=== PATIENT | female | born 1970 | race Caucasian/White ===

== ENCOUNTER 2017-12-05 09:32 | Outpatient (CLI) | payer BC ==
[2017-12-05 10:21] LABS: Mean Corpuscular HGB CONC 33.5 g/dL (32.0-36.0); Mean Corpuscular Hemoglobin 30.6 pg (27.0-31.0); Mean Corpuscular Volume 91.4 fl (81.0-99.0); Mean Platelet Volume 6.6 fL (7.4-10.4); Platelet Count 253 thou/uL (130-400); RBC Distribution Width 11.6 % (11.5-14.5); Red Blood Cell (RBC) Count 4.23 mill/uL (4.20-5.40); White Blood Cell (WBC) Count 5.2 thou/uL (4.8-10.8)
[2017-12-05 10:37] LABS: Anion Gap 11 mmol/L (10-20); BUN (Urea Nitrogen) 13 mg/dL (7.0-18.7); Calc. Creatinine Clearance 0 mL/min (70-130); Calcium 9.8 mg/dL (7.8-10.44); Carbon Dioxide 27 mmol/L (22-29); Chloride 105 mmol/L (98-107); Estimated GFR-MDRD 80; Glucose 95 mg/dL (70-105); Potassium 4.4 mmol/L (3.5-5.1); Sodium 139 mmol/L (136-145)
== END 2017-12-05 09:33 | disposition home or self-care (01) ==
LOC: LABBT 09:32
PROVIDERS: ATTEND Urology
DX: Z01.812 Encounter for preprocedural laboratory examination (principal); D49.4 Neoplasm of unspecified behavior of bladder
CPT/HCPCS: 80048; 85027

== ENCOUNTER 2017-12-08 07:36 | Day surgery (SDC) | payer BC ==
[2017-12-05 09:41] VITALS: BMI 24.1
[2017-12-08] MEDS ORDERED: Fentanyl 250 MCG/5 ML VIAL ONE ×2 (09:20→10:51)
[2017-12-08] MEDS ORDERED: CEFAZOLIN 1 GM, Syringe 2.5 ML in Sterile Water 7.5 ML SLOW IVP SCH (09:30)
[2017-12-08] MEDS ORDERED: traMADol HCl 50 MG TAB PO PRN (10:42)
[2017-12-08] MEDS ORDERED: Iothalamate Meglumine 60% 50 ML VIAL FS ONE (10:54)
--- NOTE | 2017-12-08 11:05 | OP ---
DATE OF PROCEDURE: 12/08/2017 PREOPERATIVE DIAGNOSES: Microhematuria, bladder lesions. POSTOPERATIVE DIAGNOSES: Microhematuria, bladder lesions. PROCEDURES PERFORMED: Cystoscopy, bilateral retrogrades, biopsy right ureteral orifice, biopsy poste rior wall. SPECIMENS SENT: Biopsies of these sites, the two in the right wall and the posterior wall went toget her. The ureteral orifice went by itself. ESTIMATED BLOOD LOSS: 25 mL DRAINS PLACED: A 16 Martiniquais 10 mL Coleman. Retrograde studies appeared normal. FINDINGS: There were papillary changes at the right ureteral orifice. The left side was normal. Po sterior wall, couple of kind of bland red areas. It did not appear very suspicious. It was more suzanne picious in the office than it was looking at today, but these areas were biopsied. OPERATIVE TECHNIQUE: Obtained written verbal consent from the patient after receiving IV antibiotics . She was taken to the operating suite. She was placed in the supine position on the treatment tabl e. PlexiPulses were placed on her lower extremities and turned on. She was given a general anesthet ic, oral obturator intubation. She was placed in the dorsal lithotomy position, sterilely prepped an d draped. Cystoscopy was performed with a 22-Martiniquais sheath. This was well lubricated, passed under direct vision through the female urethra and into the bladder with aid of a video camera monitor and a 30-degree lens. The bladder was filled and emptied a number of times examined with both a 30 and t he 70 degree lens. At this point, cone tip catheter was flushed with contrast, placed in the right u reteral orifice. A casing inspector KUB had been taken already with the fluoroscopy unit. We injected contrast in a retrograde manner up the right ureter, about 10 mL total. Left side was done in a similar barker er. Drainage films were also obtained. There was no extravasation, no evidence of filling defect. We then fed a 0.038 guidewire up the right ureteral orifice and used this as a way to identify the ur eteral lumen. We then biopsied the abnormal tissues on the medial anterior portion of this, not incl uding the ureteral orifice itself. We then biopsied two areas of the reddish area in the posterior w all and we used the Bugbee to cauterize these. At this point, the wire was removed. We watched for efflux of slightly bloody urine from the right ureteral orifice without difficulty over the next 5 mi nutes, so the stent was not placed. At this point, the patient was awakened, extubated, and taken by stretcher to the recovery room.
--- NOTE | 2017-12-08 11:15 | RAD ---
IVP RETROGRADE: Date: 12/08/17 HISTORY: Bladder tumor. COMPARISON: None. FINDINGS: No significant hydroureteronephrosis of left renal collecting system. Mild right-sided hydronephrosis . On the last image, there is a wire in the right ureter. IMPRESSION: 1. Mild right-sided hydronephrosis. 2. Wire seen over the right ureter on the last image. POS: GIORGIO
[2017-12-08] MEDS ORDERED: B & O ONE (11:22)
[2017-12-08] MEDS ORDERED: B & O PR SCH (12:15)
[2017-12-08] MEDS ORDERED: traMADol HCl 50 MG TAB ONE (16:37)
[2017-12-08] MEDS ORDERED: Dexamethasone 20 MG/5 ML VIAL ONE (17:02)
[2017-12-08] MEDS ORDERED: Lidocaine 1% PF 5 ML VIAL ONE (17:02)
[2017-12-08] MEDS ORDERED: PHENYLEPHRINE-NS 100 MCG/ML 10 ML SYRINGE ONE (17:02)
[2017-12-08] MEDS ORDERED: Ondansetron HCl/PF 4 MG/2 ML Vial ONE (17:02)
[2017-12-08] MEDS ORDERED: PROPOFOL 200 MG/20 ML VIAL ONE (17:02)
[2017-12-08] MEDS ORDERED: Glycopyrrolate 0.2 MG/ML 5 ML SYRINGE ONE (17:02)
[2017-12-08] MEDS ORDERED: TROSPIUM 20 MG TABLET PO SCH (21:00)
[2017-12-08] MEDS ORDERED: Nitrofurantoin Monohyd/M-Cryst 100 MG CAP PO SCH (21:00)
== END 2017-12-08 17:30 | disposition home or self-care (01) ==
LOC: SDC 07:36
PROVIDERS: ATTEND Urology
PROC: 0TBB8ZX Excision of Bladder, Via Natural or Artificial Opening Endoscopic, Diagnostic (ICD-10-PCS; principal; 2017-12-08)
PROC: BT14ZZZ Fluoroscopy of Kidneys, Ureters and Bladder (ICD-10-PCS; principal; 2017-12-08)
PROC: 0TB68ZX Excision of Right Ureter, Via Natural or Artificial Opening Endoscopic, Diagnostic (ICD-10-PCS; principal; 2017-12-08)
DX: N30.80 Other cystitis without hematuria (principal); E78.5 Hyperlipidemia, unspecified; F90.0 Attention-deficit hyperactivity disorder, predominantly inattentive type; Z79.899 Other long term (current) drug therapy
CPT/HCPCS: 51798; 74420; 88305; 96374; A4216; C1758; J0690; J1100; J2001; J2405; J2704; J3010; Q9961

== ENCOUNTER 2018-04-16 11:01 | Outpatient (CLI) | payer BC ==
--- NOTE | 2018-04-20 13:20 | MMO ---
BILATERAL SCREENING MAMMOGRAM: Date: 04/16/18 HISTORY: Screening. COMPARISON: Mammograms from 2017, 2016, and 2015. TECHNIQUE: Bilateral screening CC and MLO mammograms, as well as implant displaced mammograms performed. This patient's mammogram was interpreted with the assistance of computer-aided detection. FINDINGS: Scattered fibroglandular densities. Bilateral breast implants. No suspicious mass, architectural dist ortion, or microcalcifications. Benign-appearing calcifications right breast. IMPRESSION: BIRADS 2: Benign Finding(s) Continued annual mammographic screening is recommended. POS: USMAN
== END 2018-04-16 11:02 | disposition home or self-care (01) ==
LOC: SCSMAMMO 11:01
PROVIDERS: ATTEND Family Medicine
DX: Z12.31 Encounter for screening mammogram for malignant neoplasm of breast (principal)
CPT/HCPCS: 77067